=== PATIENT | female | born 2000 | race Caucasian/White ===

== ENCOUNTER 2021-01-17 16:28 | Emergency (ER) | payer OTHER, MEDICAID, SELFPAY ==
[2021-01-17 16:39] VITALS: BP 109/73; PULSE 92; RESP 18; TEMP 37.3; O2SAT 99
[2021-01-17 17:48] LABS: Add Manual Diff / Slide Review NO; Basophils Absolute Auto 0 /uL (0-100); Basophils Percent Auto 0.2 % (0-2); Eosinophils Absolute Auto 0 /uL (0-450); Hematocrit 37.3 % (36-46); Hemoglobin 12.6 g/dL (12.0-16.0); Lymphocytes Absolute Auto 1300 /uL (1100-4500); Lymphocytes Percent Auto 9.6 % (25-40); Mean Corpuscular HGB Conc 33.8 % (30-36); Mean Corpuscular Hemoglobin 30.2 PG (26-34); Mean Corpuscular Volume 89.4 fL (80-100); Monocytes Absolute Auto 1800 /uL (0-900); Monocytes Percent Auto 12.4 % (3-14); Neutrophils Absolute Auto 10900 /uL (1500-7000); Neutrophils Percent Auto 77.8 % (50-75); Platelet Count 288 X10^3/uL (150-400); Red Blood Cell Count 4.17 X10^6/uL (4.0-5.2); Red Cell Distribution Width 12.2 % (11.6-14.8); White Blood Cell Count 14.1 X10^3/uL (4.5-11.0)
[2021-01-17 17:52] LABS: Alanine Aminotransferase 14 IU/L (<35); Albumin 4.1 g/dL (3.5-5.0); Albumin Globulin Ratio 1.1 (1.0-2.8); Alkaline Phosphatase 62 U/L (38-126); Aspartate Aminotransferase 21 IU/L (14-36); BUN Creatinine Ratio 12.9 (6-22); Bilirubin Total 0.7 mg/dL (0.2-1.3); Blood Urea Nitrogen 9 mg/dL (7-17); Calcium 9.3 mg/dL (8.4-10.2); Carbon Dioxide 25 mmol/L (22-32); Chloride 104 mmol/L (98-107); Estimated Glomerular Filt Rate > 60.0 mL/min (>60); Globulin 3.6 g/dL (1.7-4.1); Glucose 89 mg/dL (70-100); HEMOLYSIS < 15 (0-50); Lipase 22 U/L (23-300); Potassium 3.8 mmol/L (3.4-5.1); Sodium 138 mmol/L (137-145); Total Protein 7.7 g/dL (6.3-8.2)
[2021-01-17 17:57] LABS: RBC Urine None Seen (0-5/HPF)
[2021-01-17 18:06] LABS: Bacteria Urine Few (2-10); Culture Indicated Urine Specimen Cultured; Squamous Epithelial Cell Urine 0-1 /HPF (0-5/HPF); WBC Urine 1-5/HPF (0-5/HPF)
--- NOTE | 2021-01-17 18:14 | ED_ITS ---
HPI - General Adult General Chief complaint: Abdominal Pain Stated complaint: pain left side and cant inhale all the way Time Seen by Provider: 01/17/21 18:01 Source: patient Mode of arrival: Ambulatory History of Present Illness HPI narrative: Otherwise healthy 20-year-old young woman with 24 hours of feeling hot cold, dramatic fatigue, feeling like she can not get enough water, dizzy when she stands up and within the last 18 hours began developing left- sided pain from her left ribs down to the left iliac crest that makes hard to take a deep breath. She has low-grade headache. She has a history of an ovarian cyst number of years ago currently has a Mirena IUD and is amenorrheic secondary to this. She describes no dysuria, she had a small bowel movement this morning that did not seem to influence the pain in any way. She has not noticed hematuria or black or bloody stools. She has been vomiting and remains nauseated. Related Data Allergies Allergy/AdvReac Type Severity Reaction Status Date / Time amoxicillin Allergy Verified 01/17/21 16:42 morphine Allergy Verified 01/17/21 16:42 Review of Systems Review of Systems Narrative: Remainder of complete review of systems is otherwise unremarkable except for that included in the HPI. Patient History Medical History IUD (intrauterine device) in place Social History Smoking Status: Current some day smoker Smoking Status: Current some day smoker Exam Narrative Exam Narrative: General: Healthy appearing, in no acute distress. Able to give a complete and coherent history. Well-nourished well-developed HEENT: Moist mucous membranes, normal sclera with reactive pupils, Neck: supple Respiratory: Lungs are clear to auscultation, no wheezing no rales no rhonchi. Full and symmetrical air movement Cardiac: Regular rate and rhythm no murmurs no bruits Abdomen: Soft, tender in the epigastrium to the left upper quadrant left posterior lung field and left flank. No significant pelvic tenderness. No rebound or guarding Good bowel tones, Skin: Warm and dry, no rashes Neurologic: Grossly neurologically intact with no obvious asymmetries or abnormalities Extremities: No trauma, well perfused Psych: Cooperative, appropriate insight and affect Initial Vital Signs Initial Vital Signs: Vital Signs Temperature 99.1 F 01/17/21 16:39 Pulse Rate 92 H 01/17/21 16:39 Respiratory Rate 18 01/17/21 16:39 Blood Pressure 109/73 01/17/21 16:39 Pulse Oximetry 99 01/17/21 16:39 Course Orders Ordered: ED Orders 01/17/21 17:24 Complete Blood Count AUTO DIFF Stat Comprehensive Metabolic Panel Stat Lipase Stat EKG-12 Lead Stat 01/17/21 17:50 Urine Culture Stat Urine Microscopic Stat 01/17/21 18:18 CT abdomen pelvis w con Stat Blood Culture Stat Lactate (Lactic Acid) Stat Hydromorphone HCl (Hydromorphone 0.5 Mg Inj) 0.5 mg IV Q15MIN PRN PRN Reason: Pain, Last Admin: 01/17/21 18:44 Dose: 0.5 mg Documented by: Discontinued Medications Sodium Chloride (Normal Saline 0.9%) 1,000 mls @ 1,000 mls/hr IV BOLUS ONE Stop: 01/17/21 19:16 Last Infusion: 01/17/21 19:38 Dose: Infused Documented by: Ondansetron HCl (Ondansetron 4 Mg/2 Ml Inj) 4 mg IV NOW ONE Stop: 01/17/21 18:18 Last Admin: 01/17/21 18:27 Dose: 4 mg Documented by: Vital Signs Vital signs: Vital Signs - 8 hr 01/17/21 16:39 Temperature 99.1 F Pulse Rate 92 H Respiratory Rate 18 Blood Pressure 109/73 Pulse Oximetry 99 Medical Decision Making Medical Records Medical records reviewed: Yes I reviewed the patient's medical records. Lab Data Lab results reviewed: Yes I reviewed the patient's lab results. Result diagrams: 01/17/21 17:24 01/17/21 17:24 Labs: Lab Results 01/17/21 01/17/21 01/17/21 Range/Units 17:24 17:24 17:50 WBC 14.1 H (4.5-11.0) X10^3/uL RBC 4.17 (4.0-5.2) X10^6/uL Hgb 12.6 (12.0-16.0) g/dL Hct 37.3 (36-46) % MCV 89.4 (80-100) fL MCH 30.2 (26-34) PG MCHC 33.8 (30-36) % RDW 12.2 (11.6-14.8) % Plt Count 288 (150-400) X10^3/uL Neut % (Auto) 77.8 H (50-75) % Lymph % (Auto) 9.6 L (25-40) % Stephens % (Auto) 12.4 (3-14) % Eos % (Auto) 0.0 L (2-4) % Baso % (Auto) 0.2 (0-2) % Neut # (Auto) 16946 H (2352-4143) /uL Lymph # (Auto) 1300 (3933-4408) /uL Stephens # (Auto) 1800 H (0-900) /uL Eos # (Auto) 0 (0-450) /uL Baso # (Auto) 0 (0-100) /uL Sodium 138 (137-145) mmol/L Potassium 3.8 (3.4-5.1) mmol/L Chloride 104 (98-107) mmol/L Carbon Dioxide 25 (22-32) mmol/L BUN 9 (7-17) mg/dL Creatinine 0.70 (0.52-1.04) mg/dL Estimated GFR > 60.0 (>60) mL/min BUN/Creatinine Ratio 12.9 (6-22) Glucose 89 (70-100) mg/dL Lactate (0.7-2.1) mmol/L Calcium 9.3 (8.4-10.2) mg/dL Total Bilirubin 0.7 (0.2-1.3) mg/dL AST 21 (14-36) IU/L ALT 14 (<35) IU/L Alkaline Phosphatase 62 (38-126) U/L Total Protein 7.7 (6.3-8.2) g/dL Albumin 4.1 (3.5-5.0) g/dL Globulin 3.6 (1.7-4.1) g/dL Albumin/Globulin Ratio 1.1 (1.0-2.8) Lipase 22 L (23-300) U/L Urine RBC None seen (0-5/HPF) Urine WBC 1-5/hpf (0-5/HPF) Ur Squamous Epith Cells 0-1 /hpf (0-5/HPF) Urine Bacteria Few (2-10) H (None) Ur Culture Indicated? Specimen cultured 01/17/21 Range/Units 18:40 WBC (4.5-11.0) X10^3/uL RBC (4.0-5.2) X10^6/uL Hgb (12.0-16.0) g/dL Hct (36-46) % MCV (80-100) fL MCH (26-34) PG MCHC (30-36) % RDW (11.6-14.8) % Plt Count (150-400) X10^3/uL Neut % (Auto) (50-75) % Lymph % (Auto) (25-40) % Stephens % (Auto) (3-14) % Eos % (Auto) (2-4) % Baso % (Auto) (0-2) % Neut # (Auto) (2380-3302) /uL Lymph # (Auto) (6007-0632) /uL Stephens # (Auto) (0-900) /uL Eos # (Auto) (0-450) /uL Baso # (Auto) (0-100) /uL Sodium (137-145) mmol/L Potassium (3.4-5.1) mmol/L Chloride (98-107) mmol/L Carbon Dioxide (22-32) mmol/L BUN (7-17) mg/dL Creatinine (0.52-1.04) mg/dL Estimated GFR (>60) mL/min BUN/Creatinine Ratio (6-22) Glucose (70-100) mg/dL Lactate 0.5 L (0.7-2.1) mmol/L Calcium (8.4-10.2) mg/dL Total Bilirubin (0.2-1.3) mg/dL AST (14-36) IU/L ALT (<35) IU/L Alkaline Phosphatase (38-126) U/L Total Protein (6.3-8.2) g/dL Albumin (3.5-5.0) g/dL Globulin (1.7-4.1) g/dL Albumin/Globulin Ratio (1.0-2.8) Lipase (23-300) U/L Urine RBC (0-5/HPF) Urine WBC (0-5/HPF) Ur Squamous Epith Cells (0-5/HPF) Urine Bacteria (None) Ur Culture Indicated? Point of Care Testing Test Results Negative Urine Dip Bedside Urine Glucose Negative Bedside Urine Bilirubin - Negative Bedside Urine Ketone - Negative Urine Specific [place] 1.015 Bedside Urine Occult Blood +/- Bedside Urine pH 6.0 Bedside Urine Protein - Negative Bedside Urine Urobilinogen - Negative Bedside Urine Nitrite - Negative Bedside Urine Leukocytes + 70 Esterase Point of care testing: Point of Care Testing Test Results Negative Urine Dip Bedside Urine Glucose Negative Bedside Urine Bilirubin - Negative Bedside Urine Ketone - Negative Urine Specific [place] 1.015 Bedside Urine Occult Blood +/- Bedside Urine pH 6.0 Bedside Urine Protein - Negative Bedside Urine Urobilinogen - Negative Bedside Urine Nitrite - Negative Bedside Urine Leukocytes + 70 Esterase MDM Narrative Medical decision making narrative: 20-year-old woman with 24 hours of myalgias, vomiting, orthostatics symptoms, headache and increasing left-sided abdominal pain. Workup is reassuring. There is no evidence of her complications, no diverticulitis or appendicitis, no ovarian cysts or ruptured cysts, no UTI or pyelonephritis although urine will be cultured. No pneumonia n o bowel obstruction the no pancreatitis. This point the most likely explanation is a viral syndrome. Findings are reviewed in detail with the patient. Questions are answered. To be discharged home with some Zofran and encouraged to return if symptoms worsen
--- NOTE | 2021-01-17 18:18 | DI.CT.S_ITS ---
PROCEDURE: CT ABDOMEN PELVIS W CON INDICATIONS: left side abdominal pain with fever and anorexia for 24hrs TECHNIQUE: After the administration of intravenous contrast, axial sections acquired from the lung bases to the pubic symphysis. Coronal and sagittal reformats were performed. For radiation dose reduction, the following was used: automated exposure control, adjustment of mA and/or kV according to patient size. COMPARISON: None. FINDINGS: Image quality: Excellent. Lung bases: Unremarkable. Heart: No significant findings. ABDOMEN: Liver: Enhancing focus in the dome of the liver measuring 1.1 cm, (2/7). Suspect additional enhancing lesion in the left lobe of the liver, (2/15). Gallbladder: Unremarkable. Biliary ducts: Unremarkable. Pancreas: Unremarkable. Spleen: Unremarkable. Adrenal Glands: Unremarkable. Kidneys and Ureters: No hydronephrosis. Area of hypodensity in the mid left kidney measuring 2.6 cm and 74 Hounsfield units, (4/37). Subcentimeter hypodensity in the superior pole of the right kidney. Stomach and Bowel: Stomach, small bowel loops, and colon are unremarkable. Distal small bowel is fluid-filled. The appendix is not definitely seen. Peritoneum: No abnormal intraperitoneal fluid. No free air. Ventral Wall: No hernias. Abdominal Nodes: No retroperitoneal or mesenteric adenopathy by size criteria. Vessels: Aorta and inferior vena cava are normal in size. PELVIS: Pelvic Organs: Suspect right corpus luteum. IUD is centered in the uterus. Bladder: Unremarkable. Pelvic Nodes: No enlarged lymph nodes. Miscellaneous: No hernias are seen. Bones: Unremarkable. IMPRESSION: 1. No acute process is identified. No free fluid. 2. Hypodense region in the mid left kidney. This most likely represents a hyperdense benign cysts. Unlikely focal pyelonephritis. This similar subcentimeter hypodensity in the superior pole the right kidney. No hydronephrosis. 3. Enhancing lesions x2 in the liver. These could represent hepatic adenomas, hemangiomas, or FNH. Less likely malignant neoplasm. -This could be further characterized without patient liver MRI with IV contrast (preferably Eovist hepatobiliary contrast). Comment: Findings were discussed with Shanique Jacobo at the time of dictation. Dictated by: Fab George M.D. on 01/17/2021 at 19:10 Approved by: Fab George M.D. on 01/17/2021 at 19:24
[2021-01-17] MEDS: ONDANSETRON 4 MG/2 ML INJ IV (18:27)
[2021-01-17] MEDS: SODIUM CHLORIDE 0.9% 1,000 ML 1000 ML IV (18:28)
[2021-01-17] MEDS: HYDROMORPHONE 0.5 MG INJ IV (18:44)
[2021-01-17 18:59] LABS: Lactate (Lactic Acid) 0.5 mmol/L (0.7-2.1)
[2021-01-17] MEDS: ONDANSETRON 4 MG ODT PREPACK 1 BOTTLE MISC (19:52)
== END 2021-01-17 19:55 | disposition home or self-care (01) ==
PROVIDERS: Emergency Medicine; Emergency Provider Emergency Medicine
DX: R10.9 Unspecified abdominal pain (principal); R50.9 Fever, unspecified; R11.2 Nausea with vomiting, unspecified; R63.0 Anorexia; Z97.5 Presence of (intrauterine) contraceptive device
CPT/HCPCS: 36415; 74177; 80053; 81003; 81015; 81025; 83605; 83690; 85025; 87040; 87077; 87086; 87186; 93005; 93010; 96361; 96374; 96375; 99284; J1170; J2405; Q9967